=== PATIENT | male | born 1990 ===

== ENCOUNTER 2017-05-23 08:09 | Emergency (ER) | payer MEDICAID ==
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
[2017-05-23 08:46] VITALS: TEMP 97.6; O2SAT 100
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
[2017-05-23 14:23] VITALS: BP 128/70; PULSE 63; RESP 18
== END 2017-05-23 14:43 | disposition home or self-care (01) ==
LOC: C.ER 08:09
DX: S02.92XA Unspecified fracture of facial bones, initial encounter for closed fracture (principal); Y04.0XXA Assault by unarmed brawl or fight, initial encounter